=== PATIENT | male | born 1950 | race Caucasian/White ===

== ENCOUNTER 2018-01-23 08:17 | Emergency (ER) | payer BC, MEDICARE ==
[2018-01-23 08:34] VITALS: BP 120/80
--- NOTE | 2018-01-23 08:50 | UC ---
Ear Complaint HPI - HPI Summary HPI Summary: Patient is a 67-year-old male with bilateral decreased hearing times days. He has some mild left ear discomfort. He has no URI symptoms. He has required earwax removal in the past. - History of Current Complaint Chief Complaint: UCEar Stated Complaint: EAR COMPLAINT Time Seen by Provider: 01/23/18 08:42 Hx Obtained From: Patient Onset/Duration: Gradual Onset, Lasting Days Severity Initially: Mild Severity Currently: Mild Pain Intensity: 4 Pain Scale Used: 0-10 Numeric Associated Signs/Symptoms: Positive: Hearing Loss - Allergies/Home Medications Allergies/Adverse Reactions: Allergies Allergy/AdvReac Type Severity Reaction Status Date / Time No Known Allergies Allergy Verified 01/23/18 08:34 PMH/Surg Hx/FS Hx/Imm Hx Previously Healthy: Yes - Surgical History Surgical History: Yes Surgery Procedure, Year, and Place: RT ANKLE [id number] YEARS AGO - Family History Known Family History: Positive: Hypertension - Social History Alcohol Use: Weekly Alcohol Amount: 3 GLASSES PER WEEK Substance Use Type: None Smoking Status (MU): Never Smoked Tobacco Review of Systems Constitutional: Negative Skin: Negative Eyes: Negative ENT: Ear Ache Respiratory: Negative Cardiovascular: Negative Gastrointestinal: Negative Genitourinary: Negative Motor: Negative Neurovascular: Negative Musculoskeletal: Negative Neurological: Negative Psychological: Negative Is Patient Immunocompromised?: No All Other Systems Reviewed And Are Negative: Yes Physical Exam Triage Information Reviewed: Yes Appearance: Well-Appearing, No Pain Distress, Well-Nourished Vital Signs: Initial Vital Signs Temp 98.2 F 01/23/18 08:30 Pulse 78 01/23/18 08:30 Resp 16 01/23/18 08:30 BP 120/80 01/23/18 08:30 Pulse Ox 98 01/23/18 08:30 Vital Signs Reviewed: Yes Eyes: Positive: Conjunctiva Clear ENT: Positive: Other - left tragal tenderness. Negative: Hearing grossly normal , Nasal congestion, Nasal drainage, TMs normal - unble t vis bilat due to cerumen, Muffled voice, Hoarse voice Neck: Positive: Supple, Nontender, No Lymphadenopathy Respiratory: Positive: Lungs clear, Normal breath sounds, No respiratory distress Cardiovascular: Positive: RRR, No Murmur Musculoskeletal: Positive: ROM Intact, No Edema Neurological: Positive: Alert Psychological Exam: Normal Skin Exam: Normal Re-Evaluation - Re-Evaluation First Eval Re-Evaluation Time: 09:29 Change: Improved - TMs ok bilat Ear Complaint Course/Dx - Differential Dx/Diagnosis Provider Diagnoses: cerumen impaction bilateral. left otitis externa Discharge - Sign-Out/Discharge Documenting (check all that apply): Patient Departure - Discharge Plan Condition: Stable Disposition: HOME Patient Education Materials: Otitis Externa (ED), Cerumen Impaction (ED) Referrals: Arcadio Salvador MD [Primary Care Provider] - - Billing Disposition and Condition Condition: STABLE Disposition: Home
== END 2018-01-23 09:38 | disposition home or self-care (01) ==
LOC: UCEAST 08:17
DX: H60.92 Unspecified otitis externa, left ear (principal); H61.23 Impacted cerumen, bilateral
CPT/HCPCS: 99203; G0463

== ENCOUNTER 2019-05-24 18:21 | Emergency (ER) | payer BC, MEDICARE ==
[2019-05-24 19:03] VITALS: BP 137/83
--- NOTE | 2019-05-24 19:12 | UC ---
Back Pain HPI - HPI Summary HPI Summary: Patient is a 68-year-old male with the onset of low back pain. This pain started about 5 days ago. He works installing heating and air conditioners. On the day his back pain started he had been working on his hands and knees all day. He denies any known injury. After a few days his back pain started to improve however he developed pain shooting from his left buttocks down into his left anterior schmid. His had no bowel or bladder dysfunction. He has been taking ibuprofen and Aleve. Currently he has no back pain. His pain is worse when standing. - History of Current Complaint Chief Complaint: UCBackPain Stated Complaint: LEG PAIN Time Seen by Provider: 05/24/19 18:54 Hx Obtained From: Patient Onset/Duration: Gradual Onset, Lasting Days Timing: Constant Severity Initially: Moderate Severity Currently: Severe Pain Intensity: 10 Pain Scale Used: 0-10 Numeric Back Pain: Is Diffuse Character: Aching, Spasmodic Aggravating Factor(s): Walking Alleviating Factor(s): Rest Associated Signs And Symptoms: Negative: Swelling, Redness, Bruising, Fever, Weakness, Numbness, Tingling, Abdominal Pain, Flank Pain, Bladder Incontinence, Bowel Incontinence, Weight Loss, Pain with Weight Bearing - Allergies/Home Medications Allergies/Adverse Reactions: Allergies Allergy/AdvReac Type Severity Reaction Status Date / Time No Known Allergies Allergy Verified 01/23/18 08:34 Home Medications: Home Medications Atorvastatin* [Lipitor 20 MG*] 1 tab PO DAILY 05/24/19 [History Confirmed ] PMH/Surg Hx/FS Hx/Imm Hx Previously Healthy: Yes Endocrine History: Dyslipidemia - Surgical History Surgical History: Yes Surgery Procedure, Year, and Place: RT ANKLE [id number] YEARS AGO - Family History Known Family History: Positive: Hypertension - Social History Alcohol Use: Weekly Alcohol Amount: 3 GLASSES PER WEEK Substance Use Type: None Smoking Status (MU): Never Smoked Tobacco Review of Systems All Other Systems Reviewed And Are Negative: Yes Constitutional: Positive: Negative Skin: Positive: Negative Eyes: Positive: Negative ENT: Positive: Negative Respiratory: Positive: Negative Cardiovascular: Positive: Negative Gastrointestinal: Positive: Negative Genitourinary: Positive: Negative Motor: Positive: Negative Neurovascular: Positive: Negative Musculoskeletal: Positive: Myalgia Neurological: Positive: Negative Psychological: Positive: Negative Physical Exam Triage Information Reviewed: Yes Appearance: Well-Appearing, No Pain Distress, Well-Nourished Vital Signs: Initial Vital Signs Temp 98.4 F 05/24/19 18:55 Pulse 84 05/24/19 18:55 Resp 16 05/24/19 18:55 BP 137/83 05/24/19 18:55 Pulse Ox 98 05/24/19 18:55 Vital Signs Reviewed: Yes Eyes: Positive: Conjunctiva Clear ENT: Positive: Hearing grossly normal, Uvula midline. Negative: Nasal congestion, Nasal drainage, Tonsillar swelling, Tonsillar exudate, Muffled voice , Dental tenderness, Sinus tenderness Dental Exam: Normal Neck: Positive: Supple, Nontender, No Lymphadenopathy Respiratory: Positive: Lungs clear, Normal breath sounds, No respiratory distress, No accessory muscle use Cardiovascular: Positive: RRR, No Murmur Abdomen Description: Positive: Nontender, No Organomegaly, Soft. Negative: Bruit Musculoskeletal: Positive: ROM Intact, No Edema Neurological: Positive: Alert Psychological Exam: Normal Skin Exam: Normal - Additional Comments back- FROM + SLR at 45 degrees dtrs brisk and symmetrical sensory and strength intact able to do a deep knee bend normal gait Back Pain Course/Dx - Differential Dx/Diagnosis Provider Diagnosis: Sciatica of left side without back pain, Pyriformis syndrome Discharge ED - Sign-Out/Discharge Documenting (check all that apply): Patient Departure All imaging exams completed and their final reports reviewed: No - Discharge Plan Condition: Stable Disposition: HOME Patient Education Materials: Lumbar Radiculopathy (ED) Referrals: Arcadio Salvador MD [Primary Care Provider] - Additional Instructions: I think your symptoms are due to muscle spasm ibuprofen 200mg 3 pills 4x day with food for pain I suggest you get rechecked next week if not better don't take muscle relaxant and drive or work - Billing Disposition and Condition Condition: STABLE Disposition: Home
--- NOTE | 2019-05-25 08:05 | UC ---
- Progress Note Progress Note: RADIOLOGY REPORT REVIEWED. MILD TO MODERATE DEGENERATIVE DISC DISEASE. NO CHANGE IN MGMT. Course/Dx - Diagnoses Provider Diagnoses: Sciatica of left side without back pain, Pyriformis syndrome Discharge ED - Sign-Out/Discharge Documenting (check all that apply): Post-Discharge Follow Up All imaging exams completed and their final reports reviewed: Yes - Discharge Plan Condition: Stable Disposition: HOME Prescriptions: Cyclobenzaprine (NF) [Cyclobenzaprine 5 MG (NF)] 5 mg PO TID PRN #21 tab PRN Reason: Spasms - Muscle Patient Education Materials: Lumbar Radiculopathy (ED) Referrals: Arcadio Salvador MD [Primary Care Provider] - Additional Instructions: I think your symptoms are due to muscle spasm ibuprofen 200mg 3 pills 4x day with food for pain I suggest you get rechecked next week if not better don't take muscle relaxant and drive or work - Billing Disposition and Condition Condition: STABLE Disposition: Home
== END 2019-05-24 20:25 | disposition home or self-care (01) ==
LOC: UCEAST 18:21
DX: M54.32 Sciatica, left side (principal); E78.5 Hyperlipidemia, unspecified; Z79.899 Other long term (current) drug therapy
CPT/HCPCS: 72110; 99212; G0463